=== PATIENT | male | born 1980 | race Caucasian/White ===

== ENCOUNTER 2016-09-05 02:18 | Emergency (ER) | payer MEDICARE, MEDICAID ==
[~2016-09-05] VITALS: Ht 167.6 cm; Wt 102.0 kg
[~2016-09-05 02:18] MED LIST: IBUP-232 PO
[2016-09-05 02:20] VITALS: BP 159/101; PULSE 92; RESP 18; TEMP 98.3; O2SAT 98
[2016-09-05] MEDS ORDERED: CEPHALEXIN MONOHYDRATE 500 MG CAP PO ONE (04:30)
[2016-09-05] MEDS ORDERED: SULFAMETHOXAZOLE-TRIMETHOPRIM DS 800-160 MG TAB PO ONE (04:30)
[2016-09-05] MEDS ORDERED: CEPH-460 PO (04:32)
[2016-09-05] MEDS ORDERED: BACT800T5 PO (04:32)
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
== END 2016-09-05 05:20 | disposition home or self-care (01) ==
LOC: NEPB 02:18
DX: L03.311 Cellulitis of abdominal wall (principal); B95.62 Methicillin resistant Staphylococcus aureus infection as the cause of diseases classified elsewhere
CPT/HCPCS: 86403; 87070; 87186; 99283

== ENCOUNTER 2016-12-08 22:07 | Emergency (ER) | payer MEDICARE, MEDICAID ==
[~2016-12-08] VITALS: Ht 167.6 cm; Wt 101.0 kg
[~2016-12-08 22:07] MED LIST changes: +BACT800T5 PO; +CEPH-460 PO
[2016-12-08 22:24] VITALS: BP 124/83; PULSE 74; RESP 18; TEMP 98.5; O2SAT 96
[2016-12-08] MEDS ORDERED: PENI250T59 PO (22:38)
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
[2016-12-08] MEDS ORDERED: SILVER NITR/POTASSIUM NITRATE APPLICATORS TOPICAL ONE (23:15)
== END 2016-12-08 23:42 | disposition home or self-care (01) ==
LOC: PHED 22:07
DX: L98.8 Other specified disorders of the skin and subcutaneous tissue (principal); R58 Hemorrhage, not elsewhere classified; H91.90 Unspecified hearing loss, unspecified ear; Z87.39 Personal history of other diseases of the musculoskeletal system and connective tissue; Z86.59 Personal history of other mental and behavioral disorders
CPT/HCPCS: 99282